=== PATIENT | male | born 1950 | race Caucasian/White ===

== ENCOUNTER 2023-01-01 00:20 | Inpatient (IN) | payer OTHER, MEDICARE ==
[~2023-01-01] VITALS: Ht 177.8 cm; Wt 66.0 kg
[2023-01-01] VITALS (13 sets, daily range): BP systolic 113–131; BP diastolic 57–73
[2023-01-01] MEDS ORDERED: ondansetron/PF 4mg/2ml inj IV ONE (01:35)
[2023-01-01] MEDS ORDERED: morphine 4 MG/ML inj SYRINge IV ONE (01:35)
[2023-01-01] MEDS ORDERED: normal saline 1000ML IV soln IVB ONE (01:35)
[2023-01-01 03:03] LABS: BASOPHILS # (AUTO) 0.1 X10'3 (0-0.2); BASOPHILS % (AUTO) 0.3 % (0-1); EOSINOPHILS % (AUTO) 0.1 % (0-6); HEMATOCRIT 42.7 % (42.0-52.0); HEMOGLOBIN 14.3 g/dl (14.0-17.9); LYMPHOCYTES # (AUTO) 0.6 X10'3 (1.1-4.8); LYMPHOCYTES % (AUTO) 3.4 % (21-51); MEAN CORPUSCULAR HEMOGLOBIN 31.4 PG (27.0-31.0); MEAN CORPUSCULAR HGB CONC 33.5 g/dL (33.0-36.5); MEAN CORPUSCULAR VOLUME 93.7 FL (78-98); MONOCYTES # (AUTO) 0.8 X10'3 (0-0.9); MONOCYTES % (AUTO) 4.3 % (2-12); NEUTROPHILS # (AUTO) 16.7 X10'3 (1.8-7.7); NEUTROPHILS % (AUTO) 91.9 % (42-75); PLATELET COUNT 198 X10'3 (140-440); RED BLOOD COUNT 4.56 X10'6 (4.70-6.10); RED CELL DISTRIBUTION WIDTH 13.9 % (11.5-14.5); WHITE BLOOD COUNT 18.1 X10'3 (4.5-11.0)
[2023-01-01 03:14] LABS: ALANINE AMINOTRANSFERASE 24 U/L (12-78); ALBUMIN 4.1 G/DL (3.4-5.0); ALBUMIN/GLOBULIN RATIO 1.4 (1.1-1.5); ALKALINE PHOSPHATASE 63 IU/L (46-116); ANION GAP 11 (8-16); ASPARTATE AMINO TRANSFERASE 23 U/L (10-37); BILIRUBIN,TOTAL 0.4 MG/DL (0.1-1.0); BLOOD UREA NITROGEN 28 MG/DL (7-18); BUN/CREATININE RATIO 19.6 (5.4-32.0); CALCIUM 8.7 MG/DL (8.5-10.1); CHLORIDE 108 MMOL/L (99-107); CREATININE 1.43 MG/DL (0.60-1.10); GLUCOSE 144 MG/DL (70-104); POTASSIUM 3.7 MMOL/L (3.5-5.1); SODIUM 140 MMOL/L (135-145); TOTAL CARBON DIOXIDE 21.5 MMOL/L (24-32); eGFR 49 ML/MIN
[2023-01-01] MEDS ORDERED: ondansetron/PF 4mg/2ml inj IV PRN ×3 (03:50→11:45)
[2023-01-01] MEDS ORDERED: HYDROcodone/acetaminophen 5mg/325mg tablet PO PRN (03:50)
[2023-01-01] MEDS ORDERED: magnesium 4gm in 100ml NS 100 ML IV PRN (03:50)
[2023-01-01] MEDS ORDERED: acetaminophen 325mg tablet PO PRN (03:50)
[2023-01-01] MEDS ORDERED: magnesium Cl slow-release 64mg tablet PO PRN (03:50)
[2023-01-01] MEDS ORDERED: potassium Cl 40MEQ/1/2NS 520ml 520 ML IV PRN (03:50)
[2023-01-01] MEDS ORDERED: potassium Cl 20 mEq SR tablet PO PRN ×2 (03:50)
[2023-01-01] MEDS: normal saline 1000ml 1,000 ML IV SCH (04:11)
[2023-01-01] MEDS: morphine 2 MG/ML inj. syringe IV PRN ×4 (04:14→18:05)
[2023-01-01 04:57] LABS: MAGNESIUM 2.3 MG/DL (1.5-2.4)
[2023-01-01] MEDS ORDERED: LISI20TA28 PO (06:48)
[2023-01-01] MEDS ORDERED: ATOR20TA66 PO (06:48)
[2023-01-01] MEDS ORDERED: ASPI-611 PO (06:48)
[2023-01-01] MEDS ORDERED: SILD100T PO (06:48)
[2023-01-01] MEDS ORDERED: AMLO10TA13 PO (06:48)
[2023-01-01] MEDS ORDERED: CALC-937 PO (06:49)
[2023-01-01] MEDS: K and/or MAG REPLACEMENT MC SCH ×2 (08:33→20:00)
[2023-01-01] MEDS ORDERED: sevoflurane 250ml liquid IH ONE (09:17)
[2023-01-01] MEDS ORDERED: ringers solution, lacted 1,000 ML IV SCH (09:25)
[2023-01-01] MEDS ORDERED: meperidine/PF 25mg/ml syringe IV PRN ×3 (09:25)
[2023-01-01] MEDS ORDERED: hydrALAZINE 20mg/ml inj. IV PRN (09:25)
[2023-01-01] MEDS ORDERED: labetalol 20mg/4ml (5mg/ml) syringe IV PRN (09:25)
[2023-01-01] MEDS ORDERED: acetaminophen 1,000mg/100ml IV 100 ML IV PRN (09:25)
[2023-01-01] MEDS ORDERED: morphine 2 MG/ML inj. syringe IV PRN (09:25)
[2023-01-01] MEDS ORDERED: proCHLORperazine 10 MG/2 ml inj IV PRN (09:25)
[2023-01-01] MEDS ORDERED: morphine 4 MG/ML inj SYRINge IV PRN (09:25)
[2023-01-01] MEDS ORDERED: fentaNYL/PF 50MCG/1 ML 2ML syringe ONE (09:35)
[2023-01-01] MEDS ORDERED: midazolam 1 mg/ML 2ml injection ONE (09:36)
[2023-01-01] MEDS ORDERED: ceFOXitin 1000 MG inj ONE (09:57)
[2023-01-01] MEDS ORDERED: rocuronium 10mg/ml inj IV ONE (09:58)
[2023-01-01] MEDS ORDERED: LIDOcaine 2% jelly 6ml syringe ***for topical use only ONE (09:58)
[2023-01-01] MEDS ORDERED: propofol inj 20 ML IV ONE (09:58)
[2023-01-01] MEDS ORDERED: LIDOcaine 2% (20mg/ml) 5ml vial ONE (09:58)
[2023-01-01] MEDS ORDERED: dexamethasone sod phosphate 4mg/ml inj. ONE (09:59)
[2023-01-01] MEDS ORDERED: ondansetron/PF 4mg/2ml inj ONE (09:59)
[2023-01-01] MEDS ORDERED: cloNIDine hcl/PF 100mcg/ml inj ONE (10:20)
[2023-01-01] MEDS ORDERED: 0.9 % SODIUM CHLORIDE 10 ML VIAL ONE ×2 (10:24)
[2023-01-01] MEDS ORDERED: ROPIVAcaine 0.5% (5mg/ml) 30ml vial ONE (10:24)
[2023-01-01] MEDS: potassium CL 20mEq in D5-1/2NS 1,000 ML IV SCH ×2 (11:45→18:04)
[2023-01-01] MEDS ORDERED: naloxone 0.4 mg/ml inj IV PRN (11:45)
[2023-01-01] MEDS ORDERED: glycopyrrolate 0.2mg/ml inj ONE (12:11)
[2023-01-01] MEDS ORDERED: neostigmine methylsulfate 1 MG/ML 10ml vial ONE (12:11)
--- NOTE | 2023-01-01 12:20 | NUR ---
Received from OR via , accompanied by Anesthesiologist DR RIVERO and report given by Anesthesiolgist. PT IS SLEEPING AND NOT WAKING TO VOICE, SKIN WARM AND PINK. 20F COUDE CATH WITH RED DISCHARGE, LEFT COLOSTOMY NO DISCHARGE, RIGHT ABD WITH 1/4" PACKING, 4X4, ABD AND MEDIPORE TAPE.18G RIGHT WRIST.
--- NOTE | 2023-01-01 13:00 | NUR ---
Patient in room [facility]. I have received report from KALA RIGGS and had the opportunity to ask questions and assume patient care.
--- NOTE | 2023-01-01 13:50 | NUR ---
Report called to receiving nurse. Transferred via BED Belongings . Special Issues communicated to receiving nurse KENDAL RN. PT IS AWAKE, ALERT, MOVING EXT X 4, EMILIE ICE WATER, SUE WITH PINK TINGED DRAINAGE, COLOSTOMY NO DRAINAGE, RIGHT ABD DRESSING CD, PIV PATENT, NO C/O PAIN, PT MEETS DISCHARGE CRITERIA.
--- NOTE | 2023-01-01 14:00 | NUR ---
PATIENT MADE FAMILIAR WITH ROOM, CALL LIGHT IN REACH, PATIENT RESTING AT THIS TIME.
--- NOTE | 2023-01-01 16:30 | NUR ---
MALFUNCTION WITH THE PROGRAMMING ON VITALS MACHINE. VITALS RESTARTED AT THIS TIME.
[2023-01-01] MEDS: ceFOXitin inj 1,000 MG in normal saline 100ml IV soln 100 ML IV SCH ×2 (16:59→23:00)
--- NOTE | 2023-01-01 18:48 | NUR ---
Problems reprioritized. Patient report given, questions answered & plan of care reviewed with Cristina RIGGS.
--- NOTE | 2023-01-01 18:50 | NUR ---
Patient in room [facility]. I have received report from ONEIL Hathaway and had the opportunity to ask questions and assume patient care. Patient awake and reports abdominal pain 10/10 s/p abdominal surgery. I will get him Dilaudid as ordered.
[2023-01-01] MEDS: HYDROmorphone inj. 0.5 MG/0.5 ML DISP.SYRIN IV PRN ×2 (18:54→23:00)
[2023-01-02 02:00] VITALS: BP 118/70
[2023-01-02] MEDS: potassium CL 20mEq in D5-1/2NS 1,000 ML IV SCH ×3 (02:56→18:45)
[2023-01-02 06:00] VITALS: BP 123/64
--- NOTE | 2023-01-02 06:07 | NUR ---
Problems reprioritized. Patient report given, questions answered & plan of care reviewed with ONEIL James.
[2023-01-02 06:41] LABS: BASOPHILS % (AUTO) 0.1 % (0-1); EOSINOPHILS % (AUTO) 0 % (0-6); HEMATOCRIT 41.8 % (42.0-52.0); HEMOGLOBIN 13.7 g/dl (14.0-17.9); LYMPHOCYTES # (AUTO) 0.7 X10'3 (1.1-4.8); LYMPHOCYTES % (AUTO) 3.8 % (21-51); MEAN CORPUSCULAR HEMOGLOBIN 30.7 PG (27.0-31.0); MEAN CORPUSCULAR HGB CONC 32.7 g/dL (33.0-36.5); MEAN CORPUSCULAR VOLUME 93.9 FL (78-98); MEAN PLATELET VOLUME 8.3 FL (7.4-10.4); MONOCYTES # (AUTO) 1.4 X10'3 (0-0.9); MONOCYTES % (AUTO) 8.1 % (2-12); NEUTROPHILS # (AUTO) 15.1 X10'3 (1.8-7.7); PLATELET COUNT 194 X10'3 (140-440); RED BLOOD COUNT 4.45 X10'6 (4.70-6.10); WHITE BLOOD COUNT 17.1 X10'3 (4.5-11.0)
--- NOTE | 2023-01-02 06:44 | NUR ---
Patient in room [facility]. I have received report from Cristina RIGGS and had the opportunity to ask questions and assume patient care.
[2023-01-02 07:03] LABS: ALBUMIN 2.7 G/DL (3.4-5.0); ANION GAP 5 (8-16); BLOOD UREA NITROGEN 16 MG/DL (7-18); BUN/CREATININE RATIO 12.5 (5.4-32.0); CALCIUM 7.7 MG/DL (8.5-10.1); CHLORIDE 108 MMOL/L (99-107); CREATININE 1.28 MG/DL (0.60-1.10); GLUCOSE 141 MG/DL (70-104); POTASSIUM 4.4 MMOL/L (3.5-5.1); SODIUM 138 MMOL/L (135-145); TOTAL CARBON DIOXIDE 24.8 MMOL/L (24-32); eGFR 56 ML/MIN
[2023-01-02] MEDS: K and/or MAG REPLACEMENT MC SCH ×2 (08:00→20:00)
[2023-01-02] MEDS ORDERED: CALC-854 PO (10:48)
[2023-01-02 11:00] VITALS: BP 126/70
[2023-01-02] MEDS: amLODIPine 5mg tablet PO SCH (11:05)
[2023-01-02] MEDS: HYDROcodone/acetaminophen 10/325mg tab PO PRN (13:14)
[2023-01-02 18:30] VITALS: BP 125/74
--- NOTE | 2023-01-02 18:30 | NUR ---
Problems reprioritized. Patient report given, questions answered & plan of care reviewed with Marj RIGGS.
[2023-01-02] MEDS: calcium carbonate/vitamin D3 tablet PO SCH (21:56)
[2023-01-02 22:00] VITALS: BP 128/70
--- NOTE | 2023-01-02 22:00 | NUR ---
VOIDED 250ML MELINDA URINE, PT REFUSES ANY SUE TONIGHT. BLADDER SCAN SHOWS 537ML RESIDUAL. PT DENEIS DISCOMFORT. ORDERS TO INSERT SUE IF RESIDUAL ABOVE 600ML. Addendum: 01/02/23 at 2230 by Zabrina Calzada RN Amended: Links added. Addendum: 01/03/23 at 0145 by Zabrina Calzada RN DISSREGARD ABOVE NOTE, WRONG PATIENT.
--- NOTE | 2023-01-03 02:30 | NUR ---
pT NAUSEATED, ZOFRAN GIVEN COOL WASH RAG. PT STATES RELIEF. PT REFUSES ANY PAIN MEDICATION, OFFERED SEVERAL TIMES. PT DECLINES. MOD SEROSANG DRNG FROM RECTUM, RASHEL CARE AND SUE CARE GIVEN. MACARIO [place]. Addendum: 01/03/23 at 0257 by Zabrina Calzada RN Amended: Links added.
--- NOTE | 2023-01-03 02:30 | NUR ---
ENC USE OF IS, INSTRUCTIONS GIVEN. PT DECLINES AT THIS TIME, D/T NAUSEA. Addendum: 01/03/23 at 0257 by Zabrina Calzada RN Amended: Links added.
[2023-01-03] MEDS: normal saline 1000ml 1,000 ML IV SCH (03:50)
[2023-01-03] MEDS: potassium CL 20mEq in D5-1/2NS 1,000 ML IV SCH ×3 (04:03→20:35)
--- NOTE | 2023-01-03 06:45 | NUR ---
Problems reprioritized. Patient report given, questions answered & plan of care reviewed with ONEIL ARECHIGA. Addendum: 01/03/23 at 0645 by Zabrina Calzada RN Amended: Links added.
[2023-01-03 07:00] VITALS: BP 137/87
--- NOTE | 2023-01-03 07:00 | NUR ---
Ange NaiduB. Pt c/o flu-like symptoms, T: 100.1, n/v. Flu & Covid tests? Iesha [id number] Addendum: 01/03/23 at 0733 by Iesha Masterson RN Paged Dr Baker: Ange NaiduB. Felicia for 2nd page. Pt endorses n/v, too early for Zofam; Phenergan + Covid/flu tests? Iesha [id number]?
[2023-01-03 07:05] LABS: BASOPHILS % (AUTO) 0.2 % (0-1); EOSINOPHILS % (AUTO) 0 % (0-6); HEMATOCRIT 43.9 % (42.0-52.0); HEMOGLOBIN 14.4 g/dl (14.0-17.9); LYMPHOCYTES # (AUTO) 0.5 X10'3 (1.1-4.8); LYMPHOCYTES % (AUTO) 3.5 % (21-51); MEAN CORPUSCULAR HEMOGLOBIN 30.8 PG (27.0-31.0); MEAN CORPUSCULAR HGB CONC 32.7 g/dL (33.0-36.5); MEAN CORPUSCULAR VOLUME 94.2 FL (78-98); MEAN PLATELET VOLUME 8.4 FL (7.4-10.4); MONOCYTES % (AUTO) 7.1 % (2-12); NEUTROPHILS % (AUTO) 89.2 % (42-75); PLATELET COUNT 192 X10'3 (140-440); RED BLOOD COUNT 4.67 X10'6 (4.70-6.10); RED CELL DISTRIBUTION WIDTH 14.3 % (11.5-14.5); WHITE BLOOD COUNT 13.4 X10'3 (4.5-11.0)
[2023-01-03 07:31] LABS: ALBUMIN 2.6 G/DL (3.4-5.0); ANION GAP 6 (8-16); BLOOD UREA NITROGEN 14 MG/DL (7-18); BUN/CREATININE RATIO 12.7 (5.4-32.0); CALCIUM 7.9 MG/DL (8.5-10.1); CHLORIDE 105 MMOL/L (99-107); GLUCOSE 152 MG/DL (70-104); MAGNESIUM 2.2 MG/DL (1.5-2.4); POTASSIUM 4.5 MMOL/L (3.5-5.1); SODIUM 138 MMOL/L (135-145); TOTAL CARBON DIOXIDE 26.6 MMOL/L (24-32); eGFR 66 ML/MIN
[2023-01-03] MEDS ORDERED: proCHLORperazine 10 MG/2 ml inj IV PRN (07:45)
[2023-01-03] MEDS: K and/or MAG REPLACEMENT MC SCH ×2 (08:00→20:00)
[2023-01-03] MEDS: atorvastatin 20mg tablet PO SCH (08:18)
[2023-01-03] MEDS: calcium carbonate/vitamin D3 tablet PO SCH ×2 (08:18→20:37)
[2023-01-03] MEDS: amLODIPine 5mg tablet PO SCH (08:18)
[2023-01-03] MEDS: lisinopril 20mg tablet PO SCH (08:18)
[2023-01-03 16:00] VITALS: BP 123/75
[2023-01-03 18:00] VITALS: BP 110/73
[2023-01-03] MEDS: simethicone 80mg chew tab PO SCH (20:37)
[2023-01-03] MEDS: magnesium hydroxide 30ml (MOM) UD suspension PO SCH (20:38)
[2023-01-03 22:00] VITALS: BP 122/74
[2023-01-04] MEDS: metoclopramide 5 mg/ml inj IV SCH ×4 (02:57→21:51)
[2023-01-04] MEDS: potassium CL 20mEq in D5-1/2NS 1,000 ML IV SCH ×3 (03:20→14:45)
[2023-01-04 06:00] VITALS: BP 120/70
--- NOTE | 2023-01-04 06:45 | NUR ---
Problems reprioritized. Patient report given, questions answered & plan of care reviewed with LUKE RIGGS.
[2023-01-04 06:48] LABS: BASOPHILS % (AUTO) 0.2 % (0-1); EOSINOPHILS % (AUTO) 0.3 % (0-6); HEMATOCRIT 39.2 % (42.0-52.0); HEMOGLOBIN 13.1 g/dl (14.0-17.9); LYMPHOCYTES # (AUTO) 0.7 X10'3 (1.1-4.8); LYMPHOCYTES % (AUTO) 6.6 % (21-51); MEAN CORPUSCULAR HEMOGLOBIN 31.4 PG (27.0-31.0); MEAN CORPUSCULAR HGB CONC 33.5 g/dL (33.0-36.5); MEAN CORPUSCULAR VOLUME 93.7 FL (78-98); MEAN PLATELET VOLUME 7.8 FL (7.4-10.4); MONOCYTES # (AUTO) 0.9 X10'3 (0-0.9); MONOCYTES % (AUTO) 8.5 % (2-12); NEUTROPHILS % (AUTO) 84.4 % (42-75); PLATELET COUNT 185 X10'3 (140-440); RED BLOOD COUNT 4.18 X10'6 (4.70-6.10); RED CELL DISTRIBUTION WIDTH 13.8 % (11.5-14.5); WHITE BLOOD COUNT 10.7 X10'3 (4.5-11.0)
[2023-01-04 06:58] LABS: ALBUMIN 2.1 G/DL (3.4-5.0); ANION GAP 4 (8-16); BLOOD UREA NITROGEN 16 MG/DL (7-18); BUN/CREATININE RATIO 18.2 (5.4-32.0); CALCIUM 7.9 MG/DL (8.5-10.1); CHLORIDE 106 MMOL/L (99-107); CREATININE 0.88 MG/DL (0.60-1.10); GLUCOSE 133 MG/DL (70-104); MAGNESIUM 1.9 MG/DL (1.5-2.4); POTASSIUM 4.3 MMOL/L (3.5-5.1); SODIUM 135 MMOL/L (135-145); TOTAL CARBON DIOXIDE 25.1 MMOL/L (24-32); eGFR 86 ML/MIN
[2023-01-04 07:00] VITALS: BP 120/77
[2023-01-04] MEDS: K and/or MAG REPLACEMENT MC SCH ×2 (08:00→20:00)
[2023-01-04] MEDS: atorvastatin 20mg tablet PO SCH (09:10)
[2023-01-04] MEDS: simethicone 80mg chew tab PO SCH ×3 (09:10→21:51)
[2023-01-04] MEDS: magnesium hydroxide 30ml (MOM) UD suspension PO SCH ×2 (09:10→21:51)
[2023-01-04] MEDS: calcium carbonate/vitamin D3 tablet PO SCH ×2 (09:11→21:51)
[2023-01-04] MEDS: amLODIPine 5mg tablet PO SCH (09:11)
[2023-01-04] MEDS: lisinopril 20mg tablet PO SCH (09:14)
--- NOTE | 2023-01-04 10:52 | NUR ---
Student documentation: I have reviewed and agree with all interventions, assessments performed and documented by Philip student nurse.
[2023-01-04 11:00] VITALS: BP 124/71
--- NOTE | 2023-01-04 17:05 | NUR ---
Spoke with Dr Brunson regarding patient having a hodge that he placed. Per Dr Brunson patients hodge can be DC'd in 5 days if at the hospital. If he goes home before the 5 days send patient home with the hodge and they will take it out in Dr Huerta office.
[2023-01-04 18:00] VITALS: BP 114/68
--- NOTE | 2023-01-04 18:30 | NUR ---
Patient in room [facility]. I have received report from Saed RIGGS and had the opportunity to ask questions and assume patient care.
[2023-01-04 22:00] VITALS: BP 131/70
[2023-01-05] MEDS: potassium CL 20mEq in D5-1/2NS 1,000 ML IV SCH ×3 (01:03→21:20)
[2023-01-05] MEDS: metoclopramide 5 mg/ml inj IV SCH ×4 (01:10→20:00)
[2023-01-05] MEDS: normal saline 1000ml 1,000 ML IV SCH (03:50)
--- NOTE | 2023-01-05 06:25 | NUR ---
Problems reprioritized. Patient report given, questions answered & plan of care reviewed with Jun RIGGS.
[2023-01-05 06:53] VITALS: BP 112/72
[2023-01-05 07:03] LABS: BASOPHILS % (AUTO) 0.7 % (0-1); EOSINOPHILS # (AUTO) 0.3 X10'3 (0-0.9); EOSINOPHILS % (AUTO) 4.5 % (0-6); HEMATOCRIT 37.6 % (42.0-52.0); HEMOGLOBIN 12.5 g/dl (14.0-17.9); LYMPHOCYTES % (AUTO) 15.3 % (21-51); MEAN CORPUSCULAR HEMOGLOBIN 31.2 PG (27.0-31.0); MEAN CORPUSCULAR HGB CONC 33.2 g/dL (33.0-36.5); MEAN CORPUSCULAR VOLUME 93.9 FL (78-98); MEAN PLATELET VOLUME 7.5 FL (7.4-10.4); MONOCYTES # (AUTO) 0.7 X10'3 (0-0.9); NEUTROPHILS # (AUTO) 4.3 X10'3 (1.8-7.7); NEUTROPHILS % (AUTO) 68.5 % (42-75); PLATELET COUNT 192 X10'3 (140-440); RED CELL DISTRIBUTION WIDTH 13.7 % (11.5-14.5); WHITE BLOOD COUNT 6.3 X10'3 (4.5-11.0)
[2023-01-05 07:14] LABS: ALBUMIN 2.2 G/DL (3.4-5.0); ANION GAP 1 (8-16); BLOOD UREA NITROGEN 13 MG/DL (7-18); BUN/CREATININE RATIO 13.4 (5.4-32.0); CHLORIDE 108 MMOL/L (99-107); CREATININE 0.97 MG/DL (0.60-1.10); GLUCOSE 108 MG/DL (70-104); MAGNESIUM 2.3 MG/DL (1.5-2.4); POTASSIUM 4.3 MMOL/L (3.5-5.1); SODIUM 138 MMOL/L (135-145); eGFR 77 ML/MIN
[2023-01-05] MEDS: K and/or MAG REPLACEMENT MC SCH ×2 (08:00→20:00)
[2023-01-05] MEDS: magnesium hydroxide 30ml (MOM) UD suspension PO SCH ×2 (08:01→20:00)
[2023-01-05] MEDS: lisinopril 20mg tablet PO SCH (08:02)
[2023-01-05] MEDS: simethicone 80mg chew tab PO SCH ×3 (08:02→21:21)
[2023-01-05] MEDS: calcium carbonate/vitamin D3 tablet PO SCH ×2 (08:02→20:00)
[2023-01-05] MEDS: amLODIPine 5mg tablet PO SCH (08:02)
[2023-01-05] MEDS: atorvastatin 20mg tablet PO SCH (08:03)
[2023-01-05 12:04] VITALS: BP 111/67
--- NOTE | 2023-01-05 13:04 | NUR ---
Per medical records, this is a 72 year old male who presented to the ER for evaluation of severe abdominal pain. Patient reported that he inserted a massive dildo in his rectum which has been there for about 3 hours prior to coming to the hospital. Admit for Foreign body in colon- presently POD x 4 status post sigmoid colostomy-Per Dr. Iván Martinez. Past Medical History positive for Hypertension. Patient denies tobacco, alcohol or illicit drug use. Most recent labs WBC 6.3, Hgb 12.5, Hct 37.6, BUN 13, Glucose 108, Albumin 2.2. Wound care in for skin assessment secondary to nursing consult for colostomy training. The patient is resting comfortably at nurse arrival, awake and in agreement with assessment and intent. ID by name and / medical band. He is able to reposition self in the bed. He has no skin breakdown issues noted or reported. Ostomy bag noted to the left lower quad. Lower abdominal mid line incision with ashanti, well approximated and dry. 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 The patient asked to watch the bag change today. The old appliance was removed and skin was cleaned with warm soapy water and rinsed well, patted dry. Stoma size 35mm, moist, protruding and slightly oval with positioned in the center. There were some sutures noted to the base of the stoma, gabriel-stomal skin was pink, dry and free from breakdown. Appliance bag 04 placed after gabriel skin sprayed with skin prep. He could use an 03 as well. He has not had stool output as of yet but did pass gas per his primary nurse and a very small nugget of stool yesterday. Surgeon at the bedside stated to advance his diet to full liquids. This information was passed on to the primary nurse as well as setting him up with home health when he discharges. Plan to see him tomorrow for more training. Pt educated on importance of turning and repositioning every 1-2 hours and to call for assistance if needed, on s sx of infection, hand hygiene and protein intake to facilitate wound healing as well as to stay hydrated. Handouts provided on colostomy care and appliance changes. Patient was left in a position of comfort, heels floated, call light in reach, bed locked and in the lowest position. Reported off to primary nurse.
--- NOTE | 2023-01-05 19:05 | NUR ---
Problems reprioritized. Patient report given, questions answered & plan of care reviewed with ONEIL Evans.
[2023-01-05 22:00] VITALS: BP 117/72
[2023-01-06] MEDS: metoclopramide 5 mg/ml inj IV SCH ×3 (02:00→14:00)
[2023-01-06] MEDS: HYDROcodone/acetaminophen 10/325mg tab PO PRN ×3 (04:08→19:09)
[2023-01-06] MEDS: potassium CL 20mEq in D5-1/2NS 1,000 ML IV SCH ×2 (05:11→11:45)
[2023-01-06 05:30] VITALS: BP 136/80
--- NOTE | 2023-01-06 06:20 | NUR ---
Patient in room [facility]. I have received report from ONEIL Evans and had the opportunity to ask questions and assume patient care.
[2023-01-06 06:29] LABS: BASOPHILS % (AUTO) 0.3 % (0-1); EOSINOPHILS # (AUTO) 0.3 X10'3 (0-0.9); EOSINOPHILS % (AUTO) 3.1 % (0-6); HEMATOCRIT 38.8 % (42.0-52.0); LYMPHOCYTES # (AUTO) 0.7 X10'3 (1.1-4.8); LYMPHOCYTES % (AUTO) 7.7 % (21-51); MEAN CORPUSCULAR HEMOGLOBIN 31.5 PG (27.0-31.0); MEAN CORPUSCULAR HGB CONC 33.6 g/dL (33.0-36.5); MEAN CORPUSCULAR VOLUME 93.6 FL (78-98); MEAN PLATELET VOLUME 7.6 FL (7.4-10.4); MONOCYTES # (AUTO) 0.8 X10'3 (0-0.9); MONOCYTES % (AUTO) 9.2 % (2-12); NEUTROPHILS # (AUTO) 6.8 X10'3 (1.8-7.7); NEUTROPHILS % (AUTO) 79.7 % (42-75); PLATELET COUNT 211 X10'3 (140-440); RED BLOOD COUNT 4.14 X10'6 (4.70-6.10); RED CELL DISTRIBUTION WIDTH 13.3 % (11.5-14.5); WHITE BLOOD COUNT 8.6 X10'3 (4.5-11.0)
[2023-01-06 06:46] LABS: ALBUMIN 2.4 G/DL (3.4-5.0); ANION GAP 4 (8-16); BLOOD UREA NITROGEN 13 MG/DL (7-18); BUN/CREATININE RATIO 12.9 (5.4-32.0); CALCIUM 8.4 MG/DL (8.5-10.1); CHLORIDE 104 MMOL/L (99-107); CREATININE 1.01 MG/DL (0.60-1.10); GLUCOSE 126 MG/DL (70-104); POTASSIUM 4.3 MMOL/L (3.5-5.1); SODIUM 137 MMOL/L (135-145); TOTAL CARBON DIOXIDE 29.3 MMOL/L (24-32); eGFR 73 ML/MIN
[2023-01-06] MEDS: K and/or MAG REPLACEMENT MC SCH (07:47)
[2023-01-06] MEDS: magnesium hydroxide 30ml (MOM) UD suspension PO SCH (09:27)
[2023-01-06] MEDS: atorvastatin 20mg tablet PO SCH (09:27)
[2023-01-06] MEDS: calcium carbonate/vitamin D3 tablet PO SCH (09:27)
[2023-01-06] MEDS: amLODIPine 5mg tablet PO SCH (09:28)
[2023-01-06] MEDS: simethicone 80mg chew tab PO SCH ×2 (09:28→13:00)
[2023-01-06] MEDS: lisinopril 20mg tablet PO SCH (09:28)
[2023-01-06 10:00] VITALS: BP 126/73
--- NOTE | 2023-01-06 13:22 | NUR ---
Wound nurse note, per medical records, this is a 72 year old male who presented to the ER for evaluation of severe abdominal pain. Patient reported that he inserted a massive dildo in his rectum which has been there for about 3 hours prior to coming to the hospital. Admit for foreign body in colon- presently POD x 4 status post sigmoid colostomy-Per Dr. Iván Martinez. Past Medical History positive for Hypertension. Patient denies tobacco, alcohol or illicit drug use. Wound care in for skin assessment secondary to nursing consult for colostomy training. ID by name and . Agrees to assessment and intent of visit. Patient had a chance to ask questions. Reviewed handouts, instructed on ostomy appliance change again, skin care, burping and empting the appliance. He demonstrated satisfactory understanding. He will discharging home today per primary RN at the bedside. Supplies were provided. Faxed [place] for ostomy supplies for him to continue at home.
[2023-01-06] MEDS ORDERED: SIME80TA73 PO (15:52)
[2023-01-06] MEDS ORDERED: HYDR-3965 PO (15:52)
--- NOTE | 2023-01-06 15:53 | NUR ---
Noted pt POD #5 s/p colostomy placement, pending discharge per RN. Written colostomy nutrition therapy education and RD contact information placed in patient's chart. D/w RN recommendation for diet change to low fiber if pt doesn't get discharged. Per RN pt passing gas and having stool output. Will continue to follow. Addendum: 01/06/23 at [address] Amended: Links added.
--- NOTE | 2023-01-06 19:10 | NUR ---
DC inst provided to pt & family member. IV DC'd, tip intact. All belongings sent w/pt. WC to vehicle.
== END 2023-01-06 19:10 | disposition home health service (06) | DRG 329 ==
LOC: ER 00:22 → OBSVTOIN 03:51 → INTOOBSV 03:51 → ED HOLD 03:51 → PACU 09:31 → SUR 3N 13:52
PROVIDERS: ADMIT Internal Medicine; ATTEND Family Medicine
PROC: 0TJB8ZZ Inspection of Bladder, Via Natural or Artificial Opening Endoscopic (ICD-10-PCS; 2023-01-01)
PROC: 0DCP0ZZ Extirpation of Matter from Rectum, Open Approach (ICD-10-PCS; principal; 2023-01-01 09:17)
PROC: 0D1N0Z4 Bypass Sigmoid Colon to Cutaneous, Open Approach (ICD-10-PCS; 2023-01-01 09:17)
DX: T18.5XXA Foreign body in anus and rectum, initial encounter (principal); N17.0 Acute kidney failure with tubular necrosis; Z20.822 Contact with and (suspected) exposure to COVID-19; E78.5 Hyperlipidemia, unspecified; R31.0 Gross hematuria; D72.829 Elevated white blood cell count, unspecified; N18.9 Chronic kidney disease, unspecified; I12.9 Hypertensive chronic kidney disease with stage 1 through stage 4 chronic kidney disease, or unspecified chronic kidney disease; X58.XXXA Exposure to other specified factors, initial encounter; Y93.89 Activity, other specified; Y92.89 Other specified places as the place of occurrence of the external cause; Y99.8 Other external cause status
CPT/HCPCS: 36415; 74022; 80048; 80053; 83735; 84145; 85025; 85610; 87081; 87502; 87503; 87635; 87811; 93005; 99285; A4340; A4358; A4421; A4615; A4618; A4649; A5200; A6253; A6402; A6407; A6446; A6449; A7000; C1758; G0378; J0694; J0735; J0780; J1100; J1170; J2250; J2270; J2405; J2704; J2710; J2765; J2795; J3010; J3480; J3490; J7030; J7120

== ENCOUNTER 2023-08-12 09:07 | Emergency (ER) | payer OTHER, MEDICARE ==
[~2023-08-12] VITALS: Ht 172.7 cm; Wt 60.4 kg
[~2023-08-12 09:07] MED LIST: AMLO10TA13 PO; ASPI-611 PO; ATOR20TA66 PO; CALC-854 PO; DOCU100C40 PO; LISI20TA28 PO; SILD100T PO; SIME80TA15 PO; psyllium 5.8g sugar-free pkt PO
[2023-08-12 09:49] VITALS: TEMP 97.8
[2023-08-12 10:41] LABS: BASOPHILS % (AUTO) 0.7 % (0-1); EOSINOPHILS # (AUTO) 0.2 X10'3 (0-0.9); HEMATOCRIT 43.8 % (42.0-52.0); HEMOGLOBIN 14.7 g/dl (14.0-17.9); LYMPHOCYTES # (AUTO) 0.9 X10'3 (1.1-4.8); LYMPHOCYTES % (AUTO) 15.9 % (21-51); MEAN CORPUSCULAR HEMOGLOBIN 31.3 PG (27.0-31.0); MEAN CORPUSCULAR HGB CONC 33.6 g/dL (33.0-36.5); MEAN CORPUSCULAR VOLUME 93.1 FL (78-98); MEAN PLATELET VOLUME 7.8 FL (7.4-10.4); MONOCYTES # (AUTO) 0.5 X10'3 (0-0.9); MONOCYTES % (AUTO) 8.8 % (2-12); NEUTROPHILS # (AUTO) 3.8 X10'3 (1.8-7.7); NEUTROPHILS % (AUTO) 70.6 % (42-75); PLATELET COUNT 209 X10'3 (140-440); RED CELL DISTRIBUTION WIDTH 14.3 % (11.5-14.5); WHITE BLOOD COUNT 5.4 X10'3 (4.5-11.0)
[2023-08-12 10:58] LABS: BILIRUBIN,URINE NEGATIVE (Neg); CLARITY,URINE CLEAR (Clear); COLOR,URINE STRAW (Yellow); GLUCOSE, URINE NEGATIVE (Neg); KETONES,URINE NEGATIVE (Neg); LEUKOCYTE ESTERASE ,URINE SMALL (Neg); NITRITES, URINE NEGATIVE (Neg); OCCULT BLOOD,URINE TRACE-INTACT (Neg); PROTEIN,URINE NEGATIVE (Neg); UROBILINOGEN,URINE 0.2 E.U/dL (0.2-1.0)
[2023-08-12 10:58] LABS: ALANINE AMINOTRANSFERASE 21 U/L (12-78); ALBUMIN 3.7 G/DL (3.4-5.0); ALBUMIN/GLOBULIN RATIO 1.1 (1.1-1.5); ALKALINE PHOSPHATASE 75 IU/L (46-116); ANION GAP 6 (8-16); ASPARTATE AMINO TRANSFERASE 16 U/L (10-37); BILIRUBIN,TOTAL 0.4 MG/DL (0.1-1.0); BLOOD UREA NITROGEN 19 MG/DL (7-18); BUN/CREATININE RATIO 16.5 (10.0-20.0); CALCIUM 9.4 MG/DL (8.5-10.1); CHLORIDE 106 MMOL/L (99-107); CREATININE 1.15 MG/DL (0.60-1.10); GLUCOSE 102 MG/DL (70-104); POTASSIUM 4.5 MMOL/L (3.5-5.1); SODIUM 141 MMOL/L (135-145); TOTAL CARBON DIOXIDE 29.4 MMOL/L (24-32); eCRCL 50 ML/MIN; eGFR 63 ML/MIN
[2023-08-12 11:05] LABS: UA COLLECTION TYPE NON-SPECIFIED
[2023-08-12 11:06] LABS: BACTERIA,URINE 2+ /HPF (Neg); RBC,URINE 0-2 /HPF (0-2); SPERM FEW /HPF (NEGATIVE); SQUAMOUS EPITHELIAL CELL,UR FEW /LPF (FEW); WBC,URINE 0-4 /HPF (0-4)
[2023-08-12 11:10] VITALS: BP 110/77; PULSE 66; RESP 16; O2SAT 97
[2023-08-12 11:12] LABS: LIPASE 50 U/L (16-77)
[2023-08-12] MEDS ORDERED: iohexol 300mg/ml 100ml inj. ONE (11:28)
[2023-08-12 12:22] LABS: APTT 35 SECONDS (22-32); PROTHROMBIN TIME 10.6 SECONDS (9.0-12.0)
[2023-08-12 12:28] LABS: AMYLASE 68 U/L (25-115)
[2023-08-12] MEDS ORDERED: CIPR-259 PO (13:06)
[2023-08-12] MEDS ORDERED: METR-159 PO (13:06)
== END 2023-08-12 13:30 | disposition home or self-care (01) ==
LOC: ER 09:07
DX: K52.9 Noninfective gastroenteritis and colitis, unspecified (principal); N39.0 Urinary tract infection, site not specified; E78.00 Pure hypercholesterolemia, unspecified; I10 Essential (primary) hypertension; Z79.82 Long term (current) use of aspirin; Z79.899 Other long term (current) drug therapy; Z79.2 Long term (current) use of antibiotics
CPT/HCPCS: 36415; 74177; 80053; 81001; 82150; 83690; 84484; 85025; 85610; 85730; 87077; 87088; 87186; 93005; 99285; J3490; Q9967